=== PATIENT | male | born 1960 | race Two or more races ===

== ENCOUNTER → 2024-07-23 | Outpatient (CLI) | payer OTHER, MEDICARE ==
[~2024-07-23] VITALS: Ht 175.3 cm; Wt 90.7 kg
== END | disposition home or self-care (01) ==
LOC: Rad HDHVI 14:11
PROVIDERS: ATTEND Internal Medicine Cardiovascular Disease
DX: I10 Essential (primary) hypertension (principal); R42 Dizziness and giddiness; E78.5 Hyperlipidemia, unspecified; R94.31 Abnormal electrocardiogram [ECG] [EKG]; Z82.49 Family history of ischemic heart disease and other diseases of the circulatory system
CPT/HCPCS: 78452; 93017; 96374; A9500